=== PATIENT | male | born 1990 | race Caucasian/White ===

== ENCOUNTER 2025-07-13 22:12 | Emergency (ER) | payer BC ==
[~2025-07-13] VITALS: Ht 175.3 cm; Wt 118.0 kg
[2025-07-13 22:29] VITALS: O2SAT 99
[2025-07-13] MEDS: KETOROLAC 15MG/ML VIAL IM ONE (23:20)
[2025-07-13] MEDS ORDERED: LIDO-53 TP (23:31)
[2025-07-13] MEDS ORDERED: CYCL5TAB3 MT (23:31)
[2025-07-13] MEDS ORDERED: NAPR-1176 MT (23:31)
[2025-07-13] MEDS: LIDOCAINE 5% PATCH TOP SCH (23:45)
[2025-07-13 23:47] VITALS: BP 128/77; PULSE 70; RESP 16; TEMP 36.6; O2SAT 99
== END 2025-07-13 23:48 | disposition home or self-care (01) ==
LOC: ER 22:12
DX: M25.521 Pain in right elbow (principal); Z79.1 Long term (current) use of non-steroidal anti-inflammatories (NSAID)
CPT/HCPCS: 99283; 96372; J1885